=== PATIENT | female | born 1975 | race Caucasian/White ===

== ENCOUNTER 2017-08-26 15:44 | Emergency (ER) | payer BC ==
--- NOTE | 2017-08-26 15:59 | UC ---
Throat Pain/Nasal Shade HPI - History of Current Complaint Stated Complaint: SINUS COMPLAINT Time Seen by Provider: 08/26/17 15:58 Hx Last Menstrual Period: 10/01/16 - Allergies/Home Medications Allergies/Adverse Reactions: Allergies Allergy/AdvReac Type Severity Reaction Status Date / Time No Known Allergies Allergy Verified 01/23/17 16:05 PMH/Surg Hx/FS Hx/Imm Hx - Surgical History Surgical History: Yes Surgery Procedure, Year, and Place: left (LABRAL TEAR) and right shoulder surgery - TEARS/SUBLUXATION, tonsilectomy - Family History Known Family History: Positive: Other - family HX of anxiety - Social History Alcohol Use: None Substance Use Type: None Smoking Status (MU): Never Smoked Tobacco Discharge - Discharge Plan Condition: Stable Disposition: HOME
[2017-08-26 16:03] VITALS: BP 120/70
--- NOTE | 2017-08-26 16:18 | UC ---
Throat Pain/Nasal Shade HPI - HPI Summary HPI Summary: sinus pain and pressure x 12 days + nasal congestion , pnd, sore throat, no fever, no chills - History of Current Complaint Chief Complaint: UCRespiratory Stated Complaint: SINUS COMPLAINT Time Seen by Provider: 08/26/17 15:58 Hx Obtained From: Patient Hx Last Menstrual Period: 08/25/17 Onset/Duration: Gradual Onset, Lasting Days - 12, Still Present Severity: Moderate Cough: Nonproductive Associated Signs & Symptoms: Positive: Sinus Discomfort, Nasal Discharge. Negative: Dysphagia, FB Sensation, Drooling, Wheezing, Hoarseness, Fever, Vomiting, Rash - Allergies/Home Medications Allergies/Adverse Reactions: Allergies Allergy/AdvReac Type Severity Reaction Status Date / Time No Known Allergies Allergy Verified 08/26/17 16:03 Home Medications: Home Medications Levonorgestrel (Iud) [Mirena IUD] 20 mcg IU ONCE 08/26/17 [History Confirmed 02/07] PMH/Surg Hx/FS Hx/Imm Hx Previously Healthy: Yes - Surgical History Surgical History: Yes Surgery Procedure, Year, and Place: left (LABRAL TEAR) and right shoulder surgery - TEARS/SUBLUXATION, tonsilectomy. right breast biopsy 08/26/17 - Family History Known Family History: Positive: Other - family HX of anxiety Negative: Diabetes - Social History Alcohol Use: None Substance Use Type: None Smoking Status (MU): Never Smoked Tobacco - Immunization History Most Recent Influenza Vaccination: not 2017 Review of Systems Constitutional: Negative Skin: Negative Eyes: Negative ENT: Sore Throat, Nasal Discharge Respiratory: Negative Cardiovascular: Negative Gastrointestinal: Negative Is Patient Immunocompromised?: No All Other Systems Reviewed And Are Negative: Yes Physical Exam Triage Information Reviewed: Yes Appearance: Well-Appearing, No Pain Distress, Well-Nourished Vital Signs: Initial Vital Signs Temp 98.7 F 08/26/17 15:59 Pulse 82 08/26/17 15:59 Resp 18 08/26/17 15:59 BP 120/70 08/26/17 15:59 Pulse Ox 98 08/26/17 15:59 Vital Signs Reviewed: Yes Eyes: Positive: Conjunctiva Clear ENT: Positive: Normal ENT inspection, Hearing grossly normal, Pharynx normal, Nasal congestion, Nasal drainage, TMs normal Neck: Positive: Supple, Nontender, No Lymphadenopathy Respiratory: Positive: Chest non-tender, Lungs clear, Normal breath sounds, No respiratory distress Cardiovascular: Positive: RRR, No Murmur, Pulses Normal Skin Exam: Normal Throat Pain/Nasal Course/Dx - Differential Dx/Diagnosis Provider Diagnoses: sinusitis Discharge - Discharge Plan Condition: Stable Disposition: HOME Prescriptions: Amoxicillin/Clavulanate TAB* [Augmentin TAB 875*] 875 mg PO BID #20 tab Patient Education Materials: Sinusitis (ED) Referrals: No Primary Care Phys,NOPCP [Primary Care Provider] - If Needed
== END 2017-08-26 16:22 | disposition home or self-care (01) ==
LOC: UCCORT 15:44
DX: J32.9 Chronic sinusitis, unspecified (principal)
CPT/HCPCS: 99212; G0463

== ENCOUNTER 2018-03-20 10:41 | Emergency (ER) | payer BC ==
[2018-03-20 12:26] VITALS: BP 117/85
--- NOTE | 2018-03-20 12:49 | UC ---
Respiratory Complaint HPI - HPI Summary HPI Summary: 43 year old female here with 10 days of URI symptoms and now with headache, sinus congestion and greenish discharge from her nose. Headache is described as pressure over left sinus. Reports congestion and productive cough. No SOB or any other complaints. - History of Current Complaint Chief Complaint: UCGeneralIllness Stated Complaint: SINUSES, HEADACHE, SORE THROAT Time Seen by Provider: 03/20/18 12:27 Hx Obtained From: Patient Hx Last Menstrual Period: 03/16/18 Onset/Duration: Gradual Onset Timing: Constant Severity Initially: Mild Pain Intensity: 6 Character: Sputum Description: Aggravating Factors: Nothing Alleviating Factors: Nothing Associated Signs And Symptoms: Positive: Nasal Congestion, Hoarseness, Sinus Discomfort. Negative: Fever, Chills, Hemoptysis - Allergies/Home Medications Allergies/Adverse Reactions: Allergies Allergy/AdvReac Type Severity Reaction Status Date / Time No Known Allergies Allergy Verified 08/26/17 16:03 PMH/Surg Hx/FS Hx/Imm Hx Previously Healthy: Yes - Surgical History Surgical History: Yes Surgery Procedure, Year, and Place: left (LABRAL TEAR) and right shoulder surgery - TEARS/SUBLUXATION, tonsilectomy. right breast biopsy 08/26/17 - Family History Known Family History: Positive: Other - family HX of anxiety Negative: Diabetes - Social History Alcohol Use: None Substance Use Type: None Smoking Status (MU): Never Smoked Tobacco - Immunization History Most Recent Influenza Vaccination: not 2017 Review of Systems Constitutional: Fever, Chills Skin: Negative Eyes: Negative ENT: Nasal Discharge, Sinus Congestion, Sinus Pain/Tenderness Respiratory: Cough Cardiovascular: Negative Gastrointestinal: Negative Genitourinary: Negative Motor: Negative Neurovascular: Negative Musculoskeletal: Negative Neurological: Headache Psychological: Negative All Other Systems Reviewed And Are Negative: Yes Physical Exam Triage Information Reviewed: Yes Appearance: Well-Appearing, No Pain Distress Vital Signs: Initial Vital Signs Temp 36.8 C 03/20/18 12:18 Pulse 75 03/20/18 12:18 Resp 18 03/20/18 12:18 BP 117/85 03/20/18 12:18 Pulse Ox 100 03/20/18 12:18 Eye Exam: Normal ENT: Positive: Pharyngeal erythema, Nasal congestion, Nasal drainage, Dental tenderness, Sinus tenderness. Negative: Tonsillar swelling, Tonsillar exudate Neck exam: Normal Respiratory Exam: Normal Cardiovascular Exam: Normal Abdominal Exam: Normal Psychological Exam: Normal Skin Exam: Normal UC Diagnostic Evaluation - Laboratory O2 Sat by Pulse Oximetry: 100 Respiratory Course/Dx - Differential Dx/Diagnosis Differential Diagnosis/HQI/PQRI: Bronchitis, Influenza, Laryngitis, Lower Resp Infection, Sinusitis Provider Diagnoses: Sinusitis Discharge - Sign-Out/Discharge Documenting (check all that apply): Discharge/Admit/Transfer - Discharge Plan Condition: Good Disposition: HOME Prescriptions: Amoxicillin/Clavulanate TAB* [Augmentin TAB 875*] 875 mg PO BID 10 Days #20 tab Ibuprofen TAB* [Motrin TAB* 600 MG] 600 mg PO Q8H PRN #30 tab PRN Reason: Pain Patient Education Materials: Sinusitis (ED) Referrals: Vielka Smith PA [Primary Care Provider] - - Billing Disposition and Condition Condition: GOOD Disposition: HOME
== END 2018-03-20 12:56 | disposition home or self-care (01) ==
LOC: UCCORT 10:41
DX: J32.9 Chronic sinusitis, unspecified (principal)
CPT/HCPCS: 99212; G0463

== ENCOUNTER 2018-06-21 16:47 | Emergency (ER) | payer BC ==
[2018-06-21 17:01] VITALS: BP 119/70
--- NOTE | 2018-06-21 17:21 | UC ---
Eye Complaint HPI - HPI Summary HPI Summary: Pt c/o sudden onset of bilateral eye, itchiness, discharge, crusting upon waking , burning that is worsening over the last two days. - History of Current Complaint Chief Complaint: UCEye Stated Complaint: BI LAT EYE COMP Time Seen by Provider: 06/21/18 16:56 Hx Obtained From: Patient Hx Last Menstrual Period: 05/31/18 ?: No Onset/Duration: Sudden Onset, Lasting Days, Still Present, Worse Since - onset Timing: Constant Severity Initially: Mild Severity Currently: Moderate Pain Intensity: 7 Character: Dull Aggravating Factor(s): Nothing Alleviating Factor(s): Eye Drops - OTC, no longer improve symptoms Associated Signs And Symptoms: Positive: Drainage (Purulent) - Risk Factors Penetrating Injury Risk Factor: Negative Globe Rupture Risk Factors: Negative Acute Glaucoma Risk Factors: Negative Optic Artery Occlusion Risk Factors: Negative - Allergies/Home Medications Allergies/Adverse Reactions: Allergies Allergy/AdvReac Type Severity Reaction Status Date / Time No Known Allergies Allergy Verified 06/21/18 17:02 PMH/Surg Hx/FS Hx/Imm Hx Previously Healthy: Yes - Surgical History Surgical History: Yes Surgery Procedure, Year, and Place: left (LABRAL TEAR) and right shoulder surgery - TEARS/SUBLUXATION, tonsilectomy. right breast biopsy 08/26/17. ENDOMETRIOSIS - Family History Known Family History: Positive: Other - family HX of anxiety Negative: Diabetes - Social History Occupation: Employed Full-time Lives: With Family Alcohol Use: None Substance Use Type: None Smoking Status (MU): Never Smoked Tobacco Have You Smoked in the Last Year: No - Immunization History Most Recent Influenza Vaccination: not 2017 Review of Systems Constitutional: Negative Skin: Negative Eyes: Blurred Vision, Drainage, Eye Redness ENT: Negative Respiratory: Negative Cardiovascular: Negative Gastrointestinal: Negative Genitourinary: Negative Motor: Negative Neurovascular: Negative Musculoskeletal: Negative Neurological: Negative Psychological: Negative Is Patient Immunocompromised?: No All Other Systems Reviewed And Are Negative: Yes Physical Exam Triage Information Reviewed: Yes Appearance: Well-Appearing Vital Signs: Initial Vital Signs Temp 99.2 F 06/21/18 16:55 Pulse 70 06/21/18 16:55 Resp 16 06/21/18 16:55 BP 119/70 06/21/18 16:55 Pulse Ox 99 06/21/18 16:55 Vital Signs Reviewed: Yes Eyes: Positive: Conjunctiva Inflamed ENT Exam: Normal Dental Exam: Normal Neck exam: Normal Respiratory Exam: Normal Respiratory: Positive: No respiratory distress Musculoskeletal Exam: Normal Neurological Exam: Normal Psychological Exam: Normal Skin Exam: Normal Eye Complaint Course/Dx - Differential Dx/Diagnosis Differential Diagnosis/HQI/PQRI: Conjunctivitis, Glaucoma Provider Diagnoses: conjunctivitis Discharge - Sign-Out/Discharge Documenting (check all that apply): Patient Departure - Discharge Plan Condition: Stable Disposition: HOME Prescriptions: Ofloxacin 0.3%(Ophth)(Nf) [Ocuflox OPTH 0.3%(NF)] 2 drop BOTH EYES Q8H #1 btl Patient Education Materials: Conjunctivitis (ED) Referrals: Thien HICKS,Zulay [Medical Doctor] - If Needed Vielka Smith PA [Primary Care Provider] - If Needed Additional Instructions: Please follow up with your eye care provider as needed. If symptoms do not improve with eye drops prescribed, discontinue use. Please begin use of Zaditor OTC eye drops as directed on packaging. - Billing Disposition and Condition Condition: STABLE Disposition: Home
== END 2018-06-21 17:27 | disposition home or self-care (01) ==
LOC: UCCORT 16:47
DX: H10.9 Unspecified conjunctivitis (principal)
CPT/HCPCS: 99212; G0463

== ENCOUNTER 2018-11-28 10:29 | Emergency (ER) | payer BC ==
--- OUTSIDE RECORDS SUMMARY | 2018-11-28 11:28 | XMS REPORT ---
:1975 Author Organization [facility] Address [address] [place] [address] Care Team Providers Name Role Phone Catalina Flood Unavailable Unavailable PROBLEMS Type Condition ICD9-CM [id number] Onset Condition SNOMED Code Code Code Dates Status Problem Unspecified N83.201 Active [id number] ovarian cyst, right side ALLERGIES No Information ENCOUNTERS Encounter Location Date Diagnosis [facility] Nov, OBGYN [place], [place] [id number] [facility] Nov, OBGYN [place], [place] [id number] [facility] Oct, Encounter for OBGYN [facility], contraceptive management, [place] [id number] unspecified Z30.9 [facility] Oct, Encounter for OBGYN [facility], contraceptive management, [place] [id number] unspecified Z30.9 and Unspecified ovarian cyst, right side N83.201 [facility] Sep, Encounter for other OBGYN [facility], general counseling and [place] [id number] advice on contraception Z30.09 [facility] Aug, OBGYN [place] [id number] [facility] Apr, OBGYN [facility] [place] [id number] [place] [facility] [address] [facility] 14 Apr, [address] [place], general counseling and [place] [id number] advice on contraception Z30.09 [place] [facility] 103 Jan, Unspecified ovarian cyst, OBGYN [facility], right side N83.201 and [place] [id number] Encounter for contraceptive management, unspecified Z30.9 [place] [facility] 103 Jan, Unspecified ovarian cyst, OBGYN [facility], right side N83.201 and [place] [id number] Unspecified ovarian cyst, left side N83.202 [place] [facility] 103 Nov, Unspecified ovarian cyst, OBGYN [facility], right side N83.201 [place] [id number] [place] [facility] 103 Nov, Unspecified ovarian cyst, OBGYN [facility], left side N83.202 and [place] [id number] Unspecified ovarian cyst, right side N83.201 [place] [facility] 103 Nov, Unspecified ovarian cyst, OBGYN [facility], right side N83.201 [place] [id number] [place] [facility] 103 Oct, OBGYN [place], [place] [id number] [place] [facility] 103 Jun, OBGYN [place], [place] [id number] [place] [facility] 103 Apr, OBGYN [place], [place] [id number] [place] [facility] 103 Jan, OBGYN [place], [place] [id number] [place] [facility] 103 Jan, Dysmenorrhea, unspecified OBGYN [facility], N94.6 ; Pelvic [place] [id number] perineal pain R10.2 and Encounter for other general counseling and advice on contraception Z30.09 [facility] [address], Jan, Medical [place] [phone] [facility] Jan, Dysmenorrhea, unspecified OBGYN [facility], N94.6 [place] [id number] [facility] 103 Dec, Dysmenorrhea, unspecified OBGYN [facility], N94.6 ; Pelvic [place] [id number] perineal pain R10.2 and Encounter for other general counseling and advice on contraception Z30. [facility] Nov, OBGYN [place], [place] [id number] [facility] 103 Nov, OBGYN [place], [place] [id number] [facility] 103 Oct, OBGYN [place], [place] [id number] [facility] 103 Oct, Dysmenorrhea, unspecified OBGYN [facility], N94.6 and Pelvic [place] [id number] perineal pain R10.2 [place] [facility] 103 Oct, OBGYN [place], [place] [id number] [facility] 103 Sep, Dysmenorrhea, unspecified OBGYN [facility], N94.6 and Pelvic [place] [id number] perineal pain R10.2 [place] [facility] 103 Apr, OBGYN [place], [place] [id number] [place] [facility] March, OBGYN [place], [place] [id number] [place] [facility] 103 March, OBG[place], [place] [id number] [facility] 103 March, Menorrhagia 626.2 ; OBGYN [facility], Breast Mass 611.72 ; [place] [id number] Dysmenorrhea 625.3 ; Ovarian cyst NOS 620.2 and SCREEN MAMMOGRAM NEC V76.12 [facility] 103 15 Feb, 2013 OBGYN [place], [place] [id number] IMMUNIZATIONS No Known Immunizations SOCIAL HISTORY Never Assessed REASON FOR REFERRAL FUNCTIONAL STATUS PLAN OF CARE VITAL SIGNS MEDICATIONS Unknown Medications PROCEDURES No Known procedures RESULTS No Results REASON FOR VISIT cancel surgery - LMTCB 11/26/18 Insurance Providers [facility] Health Member Patient Patient Patient Patient Patient Subscriber Subscriber Subscriber Group Insurance Plan Plan Plan Plan ID Relationship Address Phone Name Date of ID Name Date of No Type Insurance Insurance Insurance Coverage to Subscriber Address Phone Name Dates [facility] [phone] [facility] self Jessica [id number] [place] [address] [place] [facility] [place] [address] MEDICAL (GENERAL) HISTORY Type Description Date Medical History Herpes Simplex Medical History Depression Surgical History tonsilectomy 2000 Surgical History left shoulder repair 2002 Surgical History right shoulder repair 2010 Surgical History Dx lap/RADHA/Luterosacral lig and R peritoneal 02/05/17 biopsies Surgical History Rotator cuff surgery-right shoulder 09/29/2017 Surgical History Right Breast Biopsy-Benign 2017 Hospitalization History see above
--- OUTSIDE RECORDS SUMMARY | 2018-11-28 11:28 | XMS REPORT ---
:1975 Author Organization [facility] Address [address] [place] [address] Care Team Providers Name Role Phone Catalina Flood Unavailable Unavailable PROBLEMS Type Condition ICD9-CM [id number] Onset Condition SNOMED Code Code Code Dates Status Problem Unspecified N83.201 Active [id number] ovarian cyst, right side ALLERGIES No Known Allergies ENCOUNTERS Encounter Location Date [facility] Nov, OBGYN [place], [place] [id number] Replaced By [facility] [address] [place], Nov, Medical [facility] [id number] [facility] Oct, Encounter for OBGYN [facility], contraceptive management, [place] [id number] unspecified Z30.9 [facility] Oct, Encounter for OBGYN [facility], contraceptive management, [place] [id number] unspecified Z30.9 and Unspecified ovarian cyst, right side N83.201 [facility] Sep, Encounter for other OBGYN [facility], general counseling and [place] [id number] advice on contraception Z30.09 [facility] 103 Aug, OBGYN [place] [id number] [facility] 103 Apr, OBGYN [place] [id number] [place] [facility] [address] [facility] 14 Apr, [address] [place], general counseling [place] [id number] advice on contraception Z30.09 [place] [facility] 103 Jan, Unspecified ovarian cyst, OBGYN [facility], right side N83.201 and [place] [id number] Encounter for contraceptive management, unspecified Z30.9 [place] [facility] 103 Jan, Unspecified ovarian cyst, OBGYN [facility], right side N83.201 and [place] [id number] Unspecified ovarian cyst, left side N83.202 [place] [facility] 103 Nov, Unspecified ovarian cyst, OBGYN [facility], right side N83.201 [place] [id number] [place] [facility] 103 Nov, Unspecified ovarian cyst, OBGYN [facility], left side N83.202 and [place] [id number] Unspecified ovarian cyst, right side N83.201 [place] [facility] 103 Nov, Unspecified ovarian cyst, OBGYN [facility], right side N83.201 [place] [id number] [place] [facility] 103 Oct, OBGYN [place] [id number] [place] [facility] 103 Jun, OBGYN [place], [place] [id number] [place] [facility] 103 Apr, OBGYN [place], [place] [id number] [place] [facility] 103 Jan, OBGYN [place], [place] [id number] [place] [facility] 103 Jan, Dysmenorrhea, unspecified OBGYN [facility], N94.6 ; Pelvic [place] [id number] perineal pain R10.2 and Encounter for other general counseling and advice on contraception Z30.09 [place] [facility] [address] [place], Jan, [place] [id number] [facility] Jan, Dysmenorrhea, unspecified OBGYN [facility], N94.6 [place] [id number] [place] [facility] 103 Dec, Dysmenorrhea, unspecified OBGYN [facility], N94.6 ; Pelvic [place] [id number] perineal pain R10.2 and Encounter for other general counseling and advice on contraception Z30.[address] [place] [facility] Nov, [place]BGYN [place] [id number] [facility] Nov, OBGYN [place] [id number] [facility] 103 Oct, OBGYN [place] [id number] [place] [facility] 103 Oct, Dysmenorrhea, unspecified OBGYN [facility], N94.6 and Pelvic and [place] [id number] perineal pain R10.2 [place] [facility] 103 Oct, OBGYN [place] [id number] [facility] 103 Sep, Dysmenorrhea, unspecified OBGYN [facility], N94.6 and Pelvic and [place] [id number] perineal pain R10.2 [place] [facility] 103 Apr, OBGYN [place], [place] [id number] [place] [facility] 103 March, OBGYN [place], [place] [id number] [place] [facility] 103 March, OBGYN [place], [place] [id number] [place] [facility] 103 March, Menorrhagia 626.2 ; OBGYN [facility], Breast Mass 611.72 ; [place] [id number] Dysmenorrhea 625.3 ; Ovarian cyst NOS 620.2 and SCREEN MAMMOGRAM NEC V76.12 [facility] 103 15 Feb, 2013 OBGYN [place], [place] [id number] IMMUNIZATIONS No Known Immunizations SOCIAL HISTORY Never Assessed REASON FOR REFERRAL FUNCTIONAL STATUS PLAN OF CARE Activity Details Follow Up As scheduled Reason: Pending Test URINE CULTURE Pending Test URINALYSIS WITH MICROSCOPIC VITAL SIGNS Height 64 in 2018-11-19 Weight 132 lbs 2018-11-19 BMI 22.66 kg/m2 2018-11-19 Blood pressure systolic 110 mm Hg 2018-11-19 Blood pressure diastolic 62 mm Hg 2018-11-19 MEDICATIONS Unknown Medications PROCEDURES No Known procedures RESULTS No Results REASON FOR VISIT presurgical counseling Insurance Providers [facility] Health Member Patient Patient Patient Patient Patient Subscriber Subscriber Subscriber Group Insurance Plan Plan Plan Plan ID Relationship Address Phone Name Date of ID Name Date of No Type Insurance Insurance Insurance Coverage to Subscriber Address Phone Name Dates [facility] [phone] [facility] Jessica [id number] [place] [id number] [place] [facility] [id number] MEDICAL (GENERAL) HISTORY Type Description Date Medical History Herpes Simplex Medical History Depression Surgical History tonsilectomy 2000 Surgical History left shoulder repair 2002 Surgical History right shoulder repair 2010 Surgical History Dx lap/RADHA/Luterosacral lig and R peritoneal 02/05/17 biopsies Surgical History Rotator cuff surgery-right shoulder 09/29/2017 Surgical History Right Breast Biopsy-Benign 2017 Hospitalization History see above
[2018-11-28 11:31] VITALS: BP 115/75
--- NOTE | 2018-11-28 11:55 | UC ---
Throat Pain/Nasal Shade HPI - HPI Summary HPI Summary: 43 yo female presents with 1 week of sinus pain/pressure/congestion, sore throat , post nasal drip, and dry cough. She has been taking sudafed OTC with no relief. Has felt hot/cold, but has not checked her temperature. Denies SOB, chest pain, n/v. - History of Current Complaint Chief Complaint: UCGeneralIllness Stated Complaint: COUGH,RUNNY NOSE,SINUS CONGESTION,ST,BILATERAL EAR Time Seen by Provider: 11/28/18 11:55 Hx Obtained From: Patient Hx Last Menstrual Period: 10/1018 Onset/Duration: Gradual Onset Severity: Moderate Pain Intensity: 8 Pain Scale Used: 0-10 Numeric - Allergies/Home Medications Allergies/Adverse Reactions: Allergies Allergy/AdvReac Type Severity Reaction Status Date / Time No Known Allergies Allergy Verified 09/11/18 13:39 Home Medications: Home Medications Pseudoephedrine HCl [Sudafed] 30 mg PO BID 11/28/18 [History Confirmed 11/28/18] PMH/Surg Hx/FS Hx/Imm Hx - Additional Past Medical History Additional PMH: None - Surgical History Surgical History: Yes Surgery Procedure, Year, and Place: left (LABRAL TEAR) and right shoulder surgery - TEARS/SUBLUXATION, tonsilectomy. right breast biopsy 08/26/17. ENDOMETRIOSIS - Family History Known Family History: Positive: Other - family HX of anxiety Negative: Diabetes - Social History Occupation: Employed Full-time Lives: With Family Alcohol Use: None Substance Use Type: None Smoking Status (MU): Never Smoked Tobacco Have You Smoked in the Last Year: No - Immunization History Most Recent Influenza Vaccination: not 2017 Review of Systems All Other Systems Reviewed And Are Negative: Yes Constitutional: Positive: Negative Skin: Positive: Negative Eyes: Positive: Negative ENT: Positive: Sore Throat, Nasal Discharge, Sinus Congestion, Sinus Pain/ Tenderness Respiratory: Positive: Cough Cardiovascular: Positive: Negative Gastrointestinal: Positive: Negative Neurovascular: Positive: Negative Neurological: Positive: Negative Psychological: Positive: Negative Physical Exam - Summary Physical Exam Summary: GENERAL: NAD. WDWN. No pain distress. SKIN: No rashes, sores, lesions, or open wounds. HEENT: Head: AT/NC Eyes: EOM intact. Conjunctiva clear without inflammation or discharge. Ears: Hearing grossly normal. TMs intact, no bulging, erythema, or edema. Nose: Nasal mucosa moderately swollen and erythematous with yellow discharge. TTP maxillary and frontal sinus. Positive post nasal drip Throat: Posterior oropharynx with mild erythema. No exudates or tonsillar enlargement. Uvula midline. NECK: Supple. Nontender. No lymphadenopathy. CHEST: CTAB. No r/r/w. No accessory muscle use. Breathing comfortably and in no distress. CV: RRR. Without m/r/g. Pulses intact. NEURO: Alert. PSYCH: Age appropriate behavior. Triage Information Reviewed: Yes Vital Signs: Initial Vital Signs Temp 98.7 F 11/28/18 11:28 Pulse 87 11/28/18 11:28 Resp 16 11/28/18 11:28 BP 115/75 11/28/18 11:28 Pulse Ox 100 11/28/18 11:28 Vital Signs Reviewed: Yes Throat Pain/Nasal Course/Dx - Course Course Of Treatment: Sinusitis - Differential Dx/Diagnosis Provider Diagnosis: Sinusitis Discharge - Sign-Out/Discharge Documenting (check all that apply): Patient Departure All imaging exams completed and their final reports reviewed: No Studies - Discharge Plan Condition: Stable Disposition: HOME Prescriptions: Amoxicillin PO (*) [Amoxicillin 875 MG (*)] 875 mg PO BID #14 tab Patient Education Materials: Sinusitis (ED) Referrals: Vielka Smith PA [Primary Care Provider] - Additional Instructions: If you develop a fever, shortness of breath, chest pain, new or worsening symptoms - please call your PCP or go to the ED. - Billing Disposition and Condition Condition: STABLE Disposition: Home - Attestation Statements Provider Attestation: I was available for consult. This patient was seen by the [facility]. The patient was not presented to, seen by, or examined by me. EK
== END 2018-11-28 12:16 | disposition home or self-care (01) ==
LOC: UCCORT 10:29
DX: J32.9 Chronic sinusitis, unspecified (principal)
CPT/HCPCS: 99212; G0463

== ENCOUNTER 2019-08-15 09:58 | Emergency (ER) | payer BC ==
[2019-08-15 10:40] VITALS: BP 97/74
--- NOTE | 2019-08-15 10:57 | UC ---
Throat Pain/Nasal Shade HPI - HPI Summary HPI Summary: Pt presents with c/o URI like symptoms that have worsened over the last 10 days. Pt states the sinus congestion, pressure, and pain has worsened over the last 2-3 days. - History of Current Complaint Chief Complaint: UCRespiratory Stated Complaint: SINUS CONGESTION Time Seen by Provider: 08/15/19 10:49 Hx Obtained From: Patient Hx Last Menstrual Period: ONSET TODAY, 08/15/19 ?: No Onset/Duration: Gradual Onset, Lasting Days - 10, Still Present, Worse Since - onset Severity: Moderate Pain Intensity: 6 Cough: None Associated Signs & Symptoms: Positive: Sinus Discomfort - Epiglottits Risk Factors Epiglottis Risk Factors: Negative - Allergies/Home Medications Allergies/Adverse Reactions: Allergies Allergy/AdvReac Type Severity Reaction Status Date / Time No Known Allergies Allergy Verified 08/15/19 10:29 Home Medications: Home Medications Acyclovir* [Zovirax 200 MG CAP*] 200 mg PO DAILY 08/15/19 [History Confirmed ] Ethinyl Estradiol/Drospirenone [Mady 28 Tablet] 1 each PO DAILY 08/15/19 [ History Confirmed 08/15/19] Naproxen Sodium [Aleve] 220 mg PO PRN 08/15/19 [History] PMH/Surg Hx/FS Hx/Imm Hx Previously Healthy: Yes - Surgical History Surgical History: Yes Surgery Procedure, Year, and Place: left (LABRAL TEAR) and right shoulder surgery - TEARS/SUBLUXATION, tonsilectomy. right breast biopsy 08/26/17. ENDOMETRIOSIS - Family History Known Family History: Positive: Other - family HX of anxiety Negative: Diabetes - Social History Occupation: Employed Full-time Lives: With Family Alcohol Use: None Substance Use Type: None Smoking Status (MU): Never Smoked Tobacco Have You Smoked in the Last Year: No - Immunization History Most Recent Influenza Vaccination: not 2017 Review of Systems All Other Systems Reviewed And Are Negative: Yes Constitutional: Positive: Fatigue Skin: Positive: Negative Eyes: Positive: Negative ENT: Positive: Sinus Congestion, Sinus Pain/Tenderness Respiratory: Positive: Cough Cardiovascular: Positive: Negative Gastrointestinal: Positive: Negative Genitourinary: Positive: Negative Motor: Positive: Negative Neurovascular: Positive: Negative Musculoskeletal: Positive: Negative Neurological: Positive: Headache Psychological: Positive: Negative Is Patient Immunocompromised?: No Physical Exam Triage Information Reviewed: Yes Appearance: Ill-Appearing Vital Signs: Initial Vital Signs Temp 97.4 F 08/15/19 10:31 Pulse 69 08/15/19 10:31 Resp 16 08/15/19 10:31 BP 97/74 08/15/19 10:31 Pulse Ox 99 08/15/19 10:31 Vital Signs Reviewed: Yes Eye Exam: Normal ENT: Positive: Sinus tenderness Dental Exam: Normal Neck exam: Normal Respiratory: Positive: Normal breath sounds Cardiovascular Exam: Normal Musculoskeletal Exam: Normal Neurological Exam: Normal Psychological Exam: Normal Skin Exam: Normal Throat Pain/Nasal Course/Dx - Differential Dx/Diagnosis Differential Diagnosis/HQI/PQRI: Sinusitis, URI Provider Diagnosis: Sinusitis Discharge ED - Sign-Out/Discharge Documenting (check all that apply): Patient Departure All imaging exams completed and their final reports reviewed: No Studies - Discharge Plan Condition: Stable Disposition: HOME Prescriptions: Amoxicillin PO (*) [Amoxicillin 875 MG (*)] 875 mg PO Q12H #20 tab Guaifenesin/Pseudoephedrne HCl [Mucinex D ER 600-60 mg Tablet] 1 each PO Q12H # 14 tab.er.12h Patient Education Materials: Sinusitis (ED) Referrals: Vielka Smith PA [Primary Care Provider] - If Needed - Billing Disposition and Condition Condition: STABLE Disposition: Home
== END 2019-08-15 11:06 | disposition home or self-care (01) ==
LOC: UCCORT 09:58
DX: J32.9 Chronic sinusitis, unspecified (principal)
CPT/HCPCS: 99212; G0463

== ENCOUNTER 2019-09-01 10:40 | Emergency (ER) | payer BC ==
[2019-09-01 11:16] VITALS: BP 133/76
--- NOTE | 2019-09-01 11:49 | UC ---
Complaint Female HPI - HPI Summary HPI Summary: 44-year-old female who finished a course of antibiotics for a sinus infection and she started developing symptoms of a vaginal yeast infection with vaginal itching, some vulvar burning and whitish discharge. - History Of Current Complaint Chief Complaint: UCGU Stated Complaint: PERSONAL Time Seen by Provider: 09/01/19 11:15 Hx Obtained From: Patient Hx Last Menstrual Period: 08/18/19 ?: No Onset/Duration: Gradual Onset Timing: Constant Severity Initially: Mild Severity Currently: Mild Pain Intensity: 0 Character: Burning Aggravating Factor(s): Nothing Alleviating Factor(s): Nothing Associated Signs And Symptoms: Positive: Vaginal Discharge - Yeast like whitish discharge. - Allergies/Home Medications Allergies/Adverse Reactions: Allergies Allergy/AdvReac Type Severity Reaction Status Date / Time No Known Allergies Allergy Verified 09/01/19 11:16 PMH/Surg Hx/FS Hx/Imm Hx Previously Healthy: Yes - Surgical History Surgical History: Yes Surgery Procedure, Year, and Place: left (LABRAL TEAR) and right shoulder surgery - TEARS/SUBLUXATION, tonsilectomy. right breast biopsy 08/26/17, abdominal adhesion removal - Family History Known Family History: Positive: Other - family HX of anxiety Negative: Diabetes - Social History Occupation: Employed Full-time Alcohol Use: None Substance Use Type: None Smoking Status (MU): Never Smoked Tobacco Have You Smoked in the Last Year: No - Immunization History Most Recent Influenza Vaccination: not 2017 Review of Systems All Other Systems Reviewed And Are Negative: Yes Genitourinary: Positive: Vaginal/Penile Itching, Vaginal/Penile Discharge - Whitish discharge with vaginal itching. Is Patient Immunocompromised?: No Physical Exam Triage Information Reviewed: Yes Appearance: Well-Appearing, No Pain Distress, Well-Nourished Vital Signs: Initial Vital Signs Temp 97.4 F 09/01/19 11:12 Pulse 76 09/01/19 11:12 Resp 16 09/01/19 11:12 BP 133/76 09/01/19 11:12 Pulse Ox 100 09/01/19 11:12 Vital Signs Reviewed: Yes Eyes: Positive: Conjunctiva Clear ENT: Positive: Hearing grossly normal, Pharynx normal, TMs normal, Uvula midline Neck: Positive: Supple, Nontender, No Lymphadenopathy Respiratory: Positive: Lungs clear, Normal breath sounds, No respiratory distress, No accessory muscle use Cardiovascular: Positive: RRR, No Murmur, Pulses Normal, Brisk Capillary Refill Abdomen Description: Positive: Nontender, No Organomegaly, Soft. Negative: CVA Tenderness (R), CVA Tenderness (L), Distended, Guarding, Hepatomegaly, McBurney' s Point Tenderness, Peritoneal Signs, Splenomegaly Bowel Sounds: Positive: Present Musculoskeletal Exam: Normal Neurological Exam: Normal Psychological Exam: Normal Skin Exam: Normal Complaint Female Dx - Course Course Of Treatment: Patient is comfortable here. Because of her history of yeast infections following antibiotic same going to treat her with Diflucan 150 mg by mouth today and then repeated 5-7 days. She is to follow-up with her [facility] [employer] physician or primary care provider if no improvement after one week. - Differential Dx/Diagnosis Provider Diagnosis: Yeast infection Discharge ED - Sign-Out/Discharge Documenting (check all that apply): Patient Departure All imaging exams completed and their final reports reviewed: No Studies - Discharge Plan Condition: Good Disposition: HOME Prescriptions: Fluconazole 150 MG TAB* [Diflucan 150 MG TAB*] 150 mg PO UC ONCE 1 Days #1 tablet Patient Education Materials: Yeast Infection (ED) Referrals: Vielka Smith PA [Primary Care Provider] - Additional Instructions: You may take the second dose in 5-7 days after the first dose if you have continued symptoms. Follow-up with your primary care provider or [facility] [employer] [employer] physician if no improvement in 7-10 days. - Billing Disposition and Condition Condition: GOOD Disposition: Home
== END 2019-09-01 11:48 | disposition home or self-care (01) ==
LOC: UCCORT 10:40
DX: B37.49 Other urogenital candidiasis (principal)
CPT/HCPCS: 99212; G0463

== ENCOUNTER 2019-10-19 13:27 | Emergency (ER) | payer BC ==
[2019-10-19 14:05] VITALS: BP 121/76
--- NOTE | 2019-10-19 14:26 | UC ---
Throat Pain/Nasal Shade HPI - HPI Summary HPI Summary: sinus pain / pressure x 7 days pain is sever, 10 out of 10 yesterday , today is better 7 out of 10 , pain is at her frontal / maxillary sinuses nothing makes it better, worse with head movement, + nasal congestion, pnd, sore throat, mild cough denies any fever, no chills + headache, photophobia , nausea, no vomiting no history of headaches - History of Current Complaint Chief Complaint: UCRespiratory Stated Complaint: SINUS HEADACHE SORE THROAT NAUSEA Time Seen by Provider: 10/19/19 13:53 Hx Obtained From: Patient Hx Last Menstrual Period: 10/15/19 ?: No Onset/Duration: Gradual Onset, Lasting Days - 7, Still Present, Worse Since - ater Severity: Severe Pain Intensity: 8 Cough: Nonproductive Associated Signs & Symptoms: Positive: Sinus Discomfort, Nasal Discharge. Negative: Dysphagia, FB Sensation, Drooling, Wheezing, Hoarseness, Fever, Vomiting, Rash - Allergies/Home Medications Allergies/Adverse Reactions: Allergies Allergy/AdvReac Type Severity Reaction Status Date / Time No Known Allergies Allergy Verified 10/19/19 13:59 Home Medications: Home Medications Acetaminophen [Acetaminophen Extra Strength] 1,000 mg PO Q6H PRN 10/19/19 [ History Confirmed 10/19/19] Methocarbamol 750 mg PO BEDTIME PRN 10/19/19 [History Confirmed 10/19/19] Pseudoephedrine TAB* [Sudafed TAB*] 30 mg PO Q3H PRN 10/19/19 [History Confirmed 10/19/19] PMH/Surg Hx/FS Hx/Imm Hx - Additional Past Medical History Additional PMH: hx of frequent sinusitis, Endometriosis, HSV - Surgical History Surgical History: Yes Surgery Procedure, Year, and Place: left (LABRAL TEAR) and right shoulder surgery - TEARS/SUBLUXATION, tonsilectomy. right breast biopsy 08/26/17, abdominal adhesion removal - Family History Known Family History: Positive: Other - family HX of anxiety Negative: Diabetes - Social History Alcohol Use: None Substance Use Type: None Smoking Status (MU): Never Smoked Tobacco Have You Smoked in the Last Year: No - Immunization History Most Recent Influenza Vaccination: not 2017 Review of Systems All Other Systems Reviewed And Are Negative: Yes Constitutional: Positive: Negative Skin: Positive: Negative Eyes: Positive: Negative ENT: Positive: Sore Throat, Nasal Discharge, Sinus Congestion, Sinus Pain/ Tenderness. Negative: Ear Ache Respiratory: Positive: Cough Cardiovascular: Positive: Negative Neurological: Positive: Headache Is Patient Immunocompromised?: No Physical Exam Triage Information Reviewed: Yes Appearance: Well-Appearing, Well-Nourished, Pain Distress Vital Signs: Initial Vital Signs Temp 99.4 F 10/19/19 13:55 Pulse 92 10/19/19 13:55 Resp 14 10/19/19 13:55 BP 121/76 10/19/19 13:55 Pulse Ox 100 10/19/19 13:55 Vital Signs Reviewed: Yes Eye Exam: Normal Eyes: Positive: Conjunctiva Clear ENT: Positive: Normal ENT inspection, Hearing grossly normal, Pharynx normal, Nasal congestion, Nasal drainage, TMs normal, Sinus tenderness. Negative: Pharyngeal erythema, TM bulging, TM dull, TM red, Dental tenderness Neck exam: Normal Neck: Positive: Supple, Nontender, No Lymphadenopathy Respiratory: Positive: Chest non-tender, Lungs clear, Normal breath sounds Cardiovascular: Positive: RRR, No Murmur, Pulses Normal Abdominal Exam: Normal Musculoskeletal Exam: Normal Skin Exam: Normal Throat Pain/Nasal Course/Dx - Differential Dx/Diagnosis Provider Diagnosis: Sinusitis, Headache Discharge ED - Sign-Out/Discharge Documenting (check all that apply): Patient Departure All imaging exams completed and their final reports reviewed: No Studies - Discharge Plan Condition: Stable Disposition: HOME Prescriptions: Amoxicillin/Clavulanate TAB* [Augmentin TAB 875*] 875 mg PO BID #20 tab traMADol TAB* [Ultram*] 50 mg PO Q6HR PRN #20 tab MDD 4 tabs PRN Reason: Headache Patient Education Materials: Sinusitis (ED), Acute Headache (DC) Referrals: Vielka Smith PA [Primary Care Provider] - - Billing Disposition and Condition Condition: STABLE Disposition: Home
== END 2019-10-19 14:27 | disposition home or self-care (01) ==
LOC: UCCORT 13:27
DX: J32.9 Chronic sinusitis, unspecified (principal); R51 Headache
CPT/HCPCS: 99212; G0463